=== PATIENT | female | born 1990 | race African-American/Black ===

== ENCOUNTER → 2017-01-02 11:25 | Outpatient (CLI) | payer OTHER | END | disposition home or self-care (01) | LOC: AMB 11:25 | DX: R55 Syncope and collapse (principal) ==

== ENCOUNTER 2022-12-15 04:40 | Emergency (ER) | payer OTHER ==
[~2022-12-15] VITALS: Ht 165.1 cm; Wt 84.8 kg
== END 2022-12-15 07:05 | disposition home or self-care (01) ==
LOC: ED 04:40
DX: N20.0 Calculus of kidney (principal)
CPT/HCPCS: 81000; 81025; 87077; 87086; 87088; 87186; 96372; 99283; J1885